=== PATIENT | female | born 1950 | race Caucasian/White ===

== ENCOUNTER → 2017-10-07 | Outpatient (CLI) | payer MEDICARE, MEDICAID ==
[~2017-10-07] MED LIST: AMIT-106; CALC3.7S6 NS; CYCL10TA29 PO; DEXL60CA6 PO; FLU20 PO; HYDR-3072 PO; HYDR-317 PO; HYDR-4309 PO; IBUP800T37 PO; LOR5 PO; MECL12.5 PO; NAPR500T75 PO; NITR-1 PO; OLME40TA28 PO; OMEP-153 PO; ONDA4TAB PO; ONDA4TAB9 PO; ONDA4TAB97 PO; PAN40 PO; PENT100C10 PO; TOLT4CAP13 PO; ZOLP-350 PO; [UNRECOGNIZED DRUG - CODE] SC
--- NOTE | 2017-10-07 10:43 | EKG ---
FAC[place] [facility] [place]IENT NAME: CECILIO BAEZ : [id number] MR: [id number] V: [id number] EXAM DATE: ORDERING PHYSICIAN: ELIANA MYERS TECHNOLOGIST: HAI Javier Reason : HYPERTENSION Blood Pressure : / mmHG Vent. Rate : 069 BPM Atrial Rate : 069 BPM P-R Int : 168 ms QRS Dur : 076 ms QT Int : 370 ms P-R-T Axes : 068 059 044 degrees QTc Int : 396 ms Sinus rhythm No acute appearing findings No previous ECGs available Confirmed by ERNIE CRISOSTOMO ([id number]) on 10/08/2017 3:37:43 PM Referred By: LOUIS Confirmed By:ERNIE CRISOSTOMO
== END ==
LOC: RESP 09:17
PROVIDERS: ATTEND Nurse Practitioner Family
DX: R00.2 Palpitations (principal); R42 Dizziness and giddiness; I10 Essential (primary) hypertension
CPT/HCPCS: 93005

== ENCOUNTER 2017-10-10 16:56 | Emergency (ER) | payer MEDICARE, MEDICAID ==
[~2017-10-10] VITALS: Ht 7.6 cm; Wt 66.4 kg
[2017-10-10] MEDS ORDERED: ALB18R INH (17:16)
--- NOTE | 2017-10-10 17:28 | EKG ---
FACILITY: [facility] - [place] PATIENT NAME: CECILIO BAEZ : [id number] MR: [id number] V: [id number] EXAM DATE: ORDERING PHYSICIAN: JAYJAY URBINA TECHNOLOGIST: Test Reason : Blood Pressure : / mmHG Vent. Rate : 065 BPM Atrial Rate : 065 BPM P-R Int : 164 ms QRS Dur : 066 ms QT Int : 404 ms P-R-T Axes : 063 035 037 degrees QTc Int : 420 ms Normal sinus rhythm Normal ECG No previous ECGs available Confirmed by DIEGO MURPHY ([id number]) on 10/11/2017 7:45:08 AM Referred By: Confirmed By:DIEGO MURPHY
[2017-10-10] MEDS ORDERED: cloNIDine HCL 0.1 MG TAB PO ONE (17:30)
[2017-10-10 17:37] LABS: PLATELET COUNT, AUTOMATED 151 K/uL (150-450)
[2017-10-10] MEDS ORDERED: OLME40TA28 PO (17:37)
[2017-10-10] MEDS ORDERED: MULT1CAP59 PO (17:38)
--- NOTE | 2017-10-10 17:39 | ER Report ---
History and Physical Time Seen By MD: 17:00 Hx. of Stated Complaint: PT REPORTS HIGH BLOOD PRESSURE READING AT HOME, HEADACHE AND SOME LIGHTHEADEDNESS HPI/ROS CHIEF COMPLAINT: high blood pressure HISTORY OF PRESENT ILLNESS: PT states that she has been having trouble with her blood pressure ever since they took her off her Benicar. PT states her insurance would not pay for benicar so they switched her to Losartin. Pts bp with the new medication was elevated. On friday pts pcp switched her to the generic of benicar but the bp is still elevated. no cp or sob. Pt c/o of headache and occasional light headedness. PT has been taking her bp at home mutliple times a day and this afternoon it was the highest so came to ed. Currently taking Olmesartian 40mg daily REVIEW OF SYSTEMS: Constitutional: No fever, no chills. Eyes: No discharge. ENT: No sore throat. Cardiovascular: No chest pain, no palpitations. Respiratory: No cough, no shortness of breath. Gastrointestinal: No abdominal pain, no vomiting. Genitourinary: No hematuria. Musculoskeletal: No back pain. Skin: No rashes. Neurological: + headache. Allergies: Coded Allergies: fluticasone (Verified Allergy, Intermediate, HIVES, Itching, 05/23/16) cefaclor (Verified Allergy, Unknown, GI DISTRESS, 05/23/16) Uncoded Allergies: STEROIDS (Allergy, Mild, HIVES, 06/25/09) wool (Allergy, Unknown, RASH, 02/22/14) Home Meds Active Scripts Dexlansoprazole (DEXILANT) 60 Mg Cap., 60 MG PO DAILY, #30 CAP Prov:JEROME WHEAT NP 05/23/16 Reported Medications Multivitamin (MULTIVITAMINS) 1 Each Capsule, 1 EACH PO, CAPSULE 10/10/17 Olmesartan Medoxomil (BENICAR) 40 Mg Tablet, 40 MG PO 10/10/17 Albuterol Sulfate (VENTOLIN HFA) 18 Gm Inh, 1-2 PUFF INH 3-4XD, INH 10/10/17 Discontinued Scripts Ondansetron (ONDANSETRON ODT) 4 Mg Tab.rapdis, 4 MG PO Q6H, #10 TAB One tablet every 6 hours as needed for nausea and vomiting. 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 Eyes: Pupils equal and round no pallor or injection, EOMI ENT: no pharyngeal erythema or exudates, Mucous membranes are moist, Respiratory: There are no retractions, lungs are clear to auscultation. Cardiovascular: Regular rate and rhythm. pulses are equal and symmetrical Gastrointestinal: Abdomen is soft and non tender, no masses, bowel sounds normal, no guarding, no rigidity or rebound Neurological: Cranial nerves II-XII grossly intact, no sensory or motor loss Skin: Warm and dry, no rashes. Musculoskeletal: Neck is supple non tender, no vertebral tenderness Extremities are nontender, non swollen and have full range of motion. DIFFERENTIAL DIAGNOSIS: After history and physical exam differential diagnosis was considered for elecrolyte abnl, medication resistance, acs Medical Decision Making Data Points Result Diagram: 10/10/17 1723 10/10/17 1723 Laboratory Hematology Test 10/10/17 17:23 Red Blood Count 4.06 M/uL (4.17-5.56) Mean Corpuscular Volume 98.3 fL (80.0-96.0) Mean Corpuscular Hemoglobin 34.5 pg (26.0-33.0) Mean Corpuscular Hemoglobin Concent 35.1 g/dL (32.0-36.0) Red Cell Distribution Width 13.0 % (11.5-14.5) Mean Platelet Volume 9.9 fL (7.2-11.1) Neutrophils (%) (Auto) 42.7 % (39.4-72.5) Lymphocytes (%) (Auto) 49.8 % (17.6-49.6) Monocytes (%) (Auto) 6.3 % (4.1-12.4) Eosinophils (%) (Auto) 0.8 % (0.4-6.7) Basophils (%) (Auto) 0.4 % (0.3-1.4) Nucleated RBC Relative Count (auto) 0.0 /100WBC Neutrophils # (Auto) 2.3 K/uL (2.0-7.4) Lymphocytes # (Auto) 2.7 K/uL (1.3-3.6) Monocytes # (Auto) 0.3 K/uL (0.3-1.0) Eosinophils # (Auto) 0.0 K/uL (0.0-0.5) Basophils # (Auto) 0.0 K/uL (0.0-0.1) Nucleated RBC Absolute Count (auto) 0.00 K/uL Sodium Level 138 mmol/L (137-145) Potassium Level 3.1 mmol/L (3.5-5.0) Chloride Level 103 mmol/L (98-107) Carbon Dioxide Level 26 mmol/L (22-31) Blood Urea Nitrogen 10 mg/dl (7-18) Creatinine 1.00 mg/dl (0.52-1.04) Glomerular Filtration Rate Calc 55.6 Random Glucose 84 mg/dl (75-110) Calcium Level 9.1 mg/dl (8.4-10.2) Troponin I < 0.012 ng/ml Chemistry Test 10/10/17 17:23 White Blood Count 5.3 k/uL (4.5-11.0) Red Blood Count 4.06 M/uL (4.17-5.56) Hemoglobin 14.0 g/dL (12.0-16.0) Hematocrit 39.9 % (34.0-47.0) Mean Corpuscular Volume 98.3 fL (80.0-96.0) Mean Corpuscular Hemoglobin 34.5 pg (26.0-33.0) Mean Corpuscular Hemoglobin Concent 35.1 g/dL (32.0-36.0) Red Cell Distribution Width 13.0 % (11.5-14.5) Platelet Count 151 K/uL (150-450) Mean Platelet Volume 9.9 fL (7.2-11.1) Neutrophils (%) (Auto) 42.7 % (39.4-72.5) Lymphocytes (%) (Auto) 49.8 % (17.6-49.6) Monocytes (%) (Auto) 6.3 % (4.1-12.4) Eosinophils (%) (Auto) 0.8 % (0.4-6.7) Basophils (%) (Auto) 0.4 % (0.3-1.4) Nucleated RBC Relative Count (auto) 0.0 /100WBC Neutrophils # (Auto) 2.3 K/uL (2.0-7.4) Lymphocytes # (Auto) 2.7 K/uL (1.3-3.6) Monocytes # (Auto) 0.3 K/uL (0.3-1.0) Eosinophils # (Auto) 0.0 K/uL (0.0-0.5) Basophils # (Auto) 0.0 K/uL (0.0-0.1) Nucleated RBC Absolute Count (auto) 0.00 K/uL Glomerular Filtration Rate Calc 55.6 Calcium Level 9.1 mg/dl (8.4-10.2) Troponin I < 0.012 ng/ml EKG/Imaging EKG Interpretation nsr @ 65 with no acute changes noted ED Course/Re-evaluation Clinical Indication for ER IV: IV Access ED Course 10/10/2017 5:46:45 pm Pts potassium slightly low will replace. Remainder of labs are stable. Will add to her current blood pressure regimen however discussed with pt that she can have her family doctor write a letter to her insurance stating she has failed multiple substitutions for benicar and then her insurance may pay for brand specific. Decision to Disposition Date: Oct 10, 2017 Decision to Disposition Time: 18:15 Depart Departure Latest Vital Signs Vital Signs Date Time Temp Pulse Resp B/P (MAP) Pulse Ox O2 Delivery O2 Flow Rate FiO2 10/10/17 17:07 98.1 74 20 201/93 94 Room Air Impression: Primary Impression: Hypertension Additional Impression: Hypokalemia Condition: Improved Disposition: HOME OR SELF-CARE Referrals: ELIANA MYERS (PCP) 2 Days New Scripts Amlodipine Besylate (NORVASC) 5 Mg Tablet 1 TAB PO QDAY, #14 TAB Prov: JAYJAY URBINA DO 2/2/18 Departure Forms: ER Transition Record, Medications Reconciliation, Patient Portal Information Patient Instructions: Hypertension (ED) Additional Instructions: Call your family doctor on Friday to make an appointment for blood pressure check and to discuss your blood pressure medications. You can ask your family doctor to write your insurance company stating you are failing the generic medication and need brand specific or your family doctor may choose to add a new medication or change your medication completely. We are adding Norvasc once a day to your current medications. This is a blood pressure medication. Continue to take your blood pressure and write it down for your family doctor so they can see how you are doing on the norvasc with your other medications. If your symptoms worsen prior to seeing your doctor then please return to emergency room. Problem Qualifiers Primary Impression: Hypertension Hypertension type: essential hypertension Qualified Codes: I10 - Essential ( primary) hypertension JAYJAY URBINA DO Oct 10, 2017 17:39
[2017-10-10] MEDS ORDERED: POTASSIUM CHL 20 MEQ TABCR PO ONE (17:50)
[2017-10-10] MEDS ORDERED: amLODIPine BESYL(*) 5 MG TAB PO ONE (18:15)
[2017-10-10] MEDS ORDERED: AMLO-101 PO (18:18)
[2017-10-10 18:30] VITALS: BP 142/97
== END 2017-10-10 18:42 | disposition home or self-care (01) ==
LOC: ER 17:04
DX: I10 Essential (primary) hypertension (principal); E87.6 Hypokalemia
CPT/HCPCS: 84484; 85025; 93005; 99284; A9270; 82310; 82374; 82435; 82565; 82947; 84132; 84295; 84520

== ENCOUNTER → 2017-10-31 | Outpatient (CLI) | payer MEDICARE, MEDICAID ==
[~2017-10-31] MED LIST changes: +ALB18R INH; +AMLO-101 PO; +MULT1CAP59 PO
--- NOTE | 2017-11-03 08:59 | RADIOLOGY IMAGING REPORT ---
FACILITY: [facility] PATIENT NAME: CECILIO BAEZ : [id number] MR: [id number] V: [id number] EXAM DATE: [id number] ORDERING PHYSICIAN: ELIANA MYERS TECHNOLOGIST: Idania Falcon PROCEDURE:BILATERAL DIGITAL SCREENING MAMMOGRAM WITH CAD ASSISTED INTERPRETATION & 3D TOMOSYNTHESIS COMPARISON:Prior mammograms 03/26/16, 12/11/11. INDICATIONS:screening FINDINGS: A small amount of fibroglandular tissue is seen throughout the breasts. The parenchymal pattern has remained stable allowing for difference in mammographic technique & patient positioning. There is no evidence of malignant appearing mass, malignant appearing calcifications or other secondary sign of malignancy in either breast. DIAGNOSTIC CATEGORY 1--NEGATIVE. RECOMMENDATIONS: ROUTINE MAMMOGRAM AND CLINICAL EVALUATION. IMPRESSION: BIRADS 1: Negative No significant abnormality is seen Dictated by: Diamante Silver M.D. on 10/31/2017 at 15:16 Transcribed by: KIM on 10/31/2017 at 16:03 Approved by: Diamante Silver M.D. on 11/03/2017 at 8:58 [facility]
== END ==
LOC: MAMO 10-21 01:03
PROVIDERS: ATTEND Nurse Practitioner Family
DX: Z12.31 Encounter for screening mammogram for malignant neoplasm of breast (principal)
CPT/HCPCS: 77063; 77067

== ENCOUNTER → 2017-11-03 | Outpatient (CLI) | payer MEDICARE, MEDICAID ==
[~2017-11-03] MED LIST changes: +ATROPINE SUL 1 MG/ML VIAL IVP PRN; +DOBUTamine/DEXT 250 MG/250 ML 250 ML IVPB ONE; +METOPROLOL TART 5 MG/5 ML VIAL IVP PRN; +NS 0.9% 20 ML SDV IVP PRN
--- NOTE | 2017-11-04 09:18 | RADIOLOGY IMAGING REPORT ---
FACILITY: [facility] - [place] PATIENT NAME: CECILIO BAEZ : [id number] MR: [id number] V: [id number] EXAM DATE: [id number] ORDERING PHYSICIAN: ELIANA MYERS TECHNOLOGIST: Miguel Salazar PROCEDURE: STRESS ECHOCARDIOGRAPHY DOBUTAMINE COMPARISON: None. INDICATIONS: HYPERTENSION/HX QUESTIONABLE HEART DISEASE FINDINGS: After informed consent, the patient was exercised using Dobutamine echocardiographic protocol. She was started 10ug/kg/min & increased by 10ug/kg/min to a maximum of 40ug/kg/min. Patient had no complaints of any chest pains or chest pressures or any shortness of breath. The test was stopped as she reached 91% of the predicted maximum heart rate. There was no ST segment change of ischemia. There was an occasional premature ventricular contraction. Her baseline EKG showed normal sinus rhythm. ECHOCARDIOGRAPHIC PORTION OF THE STRESS TEST: At rest the patient had normal ejection fraction of 58% with a Grade 1/4 decrease in diastolic function. There was a trace of mitral & tricuspid insufficiency with normal right ventricular systolic pressures of 33ml Hg. Mild amount of pulmonic insufficiency & a moderate amount of aortic insufficiency present. No stenosis of any of the valves was noted. With exercise the patient had normal hyperdynamic response to exercise with no left ventricular segmental wall motion abnormalities. CONCLUSION: 1. Normal stress echocardiograph with normal LV function systolically at rest with hyperdynamic response to exercise & low probability of ischemia. 2. A trace of mitral & tricuspid insufficiency with normal right ventricular pressures. 3. A mild amount of pulmonic insufficiency & a moderate amount of aortic insufficiency. No stenosis was noted. 4. There is a Grade 1/4 decrease in diastolic function. 5. No left ventricular thickening was noted. Dictated by: Ana María Yeboah M.D. on 11/03/2017 at 10:11 Transcribed by: ANITA on 11/03/2017 at 14:13 Approved by: Ana María Yeboah M.D. on 11/04/2017 at 9:16 [facility]
--- NOTE | 2017-11-05 08:28 | RT STRESS TEST REPORT ---
FACILITY: [facility] PATIENT NAME: CECILIO BAEZ : [id number] MR: [id number] V: [id number] EXAM DATE: ORDERING PHYSICIAN: ELIANA MYERS TECHNOLOGIST: Amparo Acquisition Time: 2017-11-03 07:07:57 Total Exercise Time: 00:09:53 Test Indications: htn Medications: Protocol: DOBUTAMINE Max HR: 142 BPM 91% of Pred: 155 BPM Max BP: 218/097 mmHG Max Work Load: 1.0 METS see echo report Confirmed by ANIVAL MITCHELL ([id number]) on 11/05/2017 8:28:02 AM Referred By: Overread By: ANIVAL MITCHELL
== END ==
LOC: RESP 01:13
PROVIDERS: ATTEND Nurse Practitioner Family
DX: R00.2 Palpitations (principal); I10 Essential (primary) hypertension; R53.81 Other malaise; R42 Dizziness and giddiness; R07.9 Chest pain, unspecified; I34.0 Nonrheumatic mitral (valve) insufficiency; I36.1 Nonrheumatic tricuspid (valve) insufficiency; I37.1 Nonrheumatic pulmonary valve insufficiency; I35.1 Nonrheumatic aortic (valve) insufficiency
CPT/HCPCS: 93017; 93325; 93350

== ENCOUNTER → 2018-01-01 | Outpatient (CLI) | payer MEDICARE, MEDICAID ==
[~2018-01-01] MED LIST changes: -ATROPINE SUL 1 MG/ML VIAL IVP PRN; -DOBUTamine/DEXT 250 MG/250 ML 250 ML IVPB ONE; -METOPROLOL TART 5 MG/5 ML VIAL IVP PRN; -NS 0.9% 20 ML SDV IVP PRN
--- NOTE | 2018-01-01 10:52 | RADIOLOGY IMAGING REPORT ---
[place] [facility] [place] NAME: Es Cerda : 1950 MR: [id number] V: [id number] EXAM DATE: [id number] ORDERING PHYSICIAN: ALLEN HSIEH TECHNOLOGIST: Location: [facility] Patient: Es Cerda : 1950 Visit/Account:[id number] Date of Sevice: 01/01/2018 DEXA Scan Clinical history: Screening. Comparison: 03/03/2009. LUMBAR SPINE: The bone mineral density (BMD) measured from L1-L4 correlates with a Z-score of 0.2 and a T-score of -1.5 which is osteopenic as defined by the World Health Organization. The liz esponding risk of fracture in the lumbar spine is moderately increased compared with a young adult re ference population. This value has decreased by two % since the prior study. More than 5% change is considered significant. HIP: Bone mineral density (BMD) measured in the Left Total Hip region correlates with a Z-score of -0.9 an d a T-score of -2.2. The T-score of the femoral neck is -2.2. The lower of the two T-scores is osteopenic as defined by the World Health Organization. Th e corresponding risk of fracture in the hip is moderately increased compared with a young adult refer ence population. This value has decreased by 13.2 % since the prior study. More than 5% change is c onsidered significant. Bone mineral density (BMD) measured in the Left Femoral Neck region measures 0.733 g/cm?. IMPRESSION: 1. Lumbar spine: Osteopenic. There has been no significant change in the bone mineral density sinc e the previous exam. 2. Left Total Hip: Osteopenic. There has been significant decrease in the bone mineral density sinc e the previous exam. The next DEXA scan of this patient should include the following sites: L1-L4 and Left hip. FRAX? WHO Fracture Risk Assessment Tool link: <http://www.shef.ac.uk/FRAX/tool.jsp?locationValue=9> PLEASE NOTE: 1) The World Health Organization defines low BMD as follows: T-score Normal > -1 Osteopenia < -1 and > -2.5 Osteoporosis < -2.5 without fractures Established osteoporosis < -2.5 with fractures 2) In general, you may wish to consider: Diagnosis Treatment Follow-up DEXA Normal BMD Prevention 2-3 years Osteopenia Prevention/therapy 1-2 years Osteoporosis Therapy Yearly 3) Fracture risk estimated from the T-score is more accurate for vertebral fractures (often spontane ous) than for hip fractures. Report Dictated By: Alvni Carlos MD at 01/01/2018 10:45 AM Report E-Signed By: Alvin Carlos MD at 01/01/2018 10:47 AM WSN:[email or web address]
== END ==
LOC: RAD 09:53
PROVIDERS: ATTEND Nurse Practitioner Family
DX: Z13.820 Encounter for screening for osteoporosis (principal); M85.89 Other specified disorders of bone density and structure, multiple sites
CPT/HCPCS: 77080

== ENCOUNTER → 2018-03-17 | Outpatient (CLI) | payer MEDICARE, MEDICAID | LOC: LAB 13:41 | PROVIDERS: ATTEND Nurse Practitioner Family | DX: R19.7 Diarrhea, unspecified (principal); I10 Essential (primary) hypertension; R05 Cough; K52.9 Noninfective gastroenteritis and colitis, unspecified; N30.10 Interstitial cystitis (chronic) without hematuria; M54.5 Low back pain; K21.9 Gastro-esophageal reflux disease without esophagitis; K31.84 Gastroparesis; E04.9 Nontoxic goiter, unspecified; M85.80 Other specified disorders of bone density and structure, unspecified site; D51.0 Vitamin B12 deficiency anemia due to intrinsic factor deficiency; E78.00 Pure hypercholesterolemia, unspecified; E63.9 Nutritional deficiency, unspecified; E55.9 Vitamin D deficiency, unspecified | CPT/HCPCS: 36415; 82040; 82247; 82306; 82310; 82374; 82435; 82465; 82565; 82607; 82728; 82947; 83718; 84075; 84132; 84155; 84295; 84443; 84450; 84460; 84478; 84520; 85027 ==

== ENCOUNTER → 2018-04-13 | Outpatient (CLI) | payer MEDICARE, MEDICAID ==
--- NOTE | 2018-04-13 15:03 | RADIOLOGY IMAGING REPORT ---
FACILITY: [facility] - [place] PATIENT NAME: Es Cerda : 1950 MR: [id number] V: [id number] EXAM DATE: ORDERING PHYSICIAN: ALLEN HSIEH TECHNOLOGIST: Location: [facility] Patient: Es Cerda : 1950 Visit/Account:[id number] Date of Sevice: 04/13/2018 Exam type: RIBS LEFT History: Pain while pulling the Comparison: April 12, 2008. Findings: There is a subtle irregularity along the anterior aspect the left 10th rib which may represent a smal l nondisplaced fracture. No evidence of pulmonary consolidation pleural effusion or pneumothorax. T he cardiac silhouette is normal in size. There are surgical clips the right upper quadrant of abdome n. IMPRESSION: 1. There is a subtle irregularity along the anterior aspect of the left 10th rib which may represent a small nondisplaced fracture Report Dictated By: Diamante Silver MD at 04/13/2018 2:57 PM Report E-Signed By: Diamante Silver MD at 04/13/2018 3:00 PM WSN:[email or web address]
== END ==
LOC: RAD 11:34
PROVIDERS: ATTEND Nurse Practitioner Family
DX: S30.0XXA Contusion of lower back and pelvis, initial encounter (principal); R07.81 Pleurodynia
CPT/HCPCS: 71100

== ENCOUNTER → 2018-06-24 | Outpatient (CLI) | payer MEDICARE, MEDICAID ==
[~2018-06-24] MED LIST changes: -HYDR-4309 PO; +HYDR-653 PO
--- NOTE | 2018-06-24 12:07 | RADIOLOGY IMAGING REPORT ---
FACILITY: [facility] - [place] PATIENT NAME: Es Cerda : 1950 MR: [id number] V: [id number] EXAM DATE: ORDERING PHYSICIAN: KSENIA [place] TECHNOLOGIST: Location: [facility] Patient: Es Cerda : 1950 Visit/Account:[id number] Date of Sevice: 06/24/2018 Exam type: CHEST PA AND LAT History: Iritis Comparison: February 17, 2015. Findings: The lungs are free of acute effusions, infiltrates or edema. Cardiac silhouette is normal in size. The trachea is in midline. Surgical clips are present right upper quadrant of abdomen. IMPRESSION: 1. No acute cardiac pulmonary process seen Report Dictated By: Diamante Silver MD at 06/24/2018 11:56 AM Report E-Signed By: Diamante Silver MD at 06/24/2018 12:02 PM WSN:[email or web address]
== END ==
LOC: RAD 10:17
PROVIDERS: ATTEND Technician/Technologist Ophthalmic
DX: H20.023 Recurrent acute iridocyclitis, bilateral (principal)
CPT/HCPCS: 71046; 86580

== ENCOUNTER → 2018-08-13 | Outpatient (CLI) | payer MEDICARE, MEDICAID | LOC: LAB 09:54 | PROVIDERS: ATTEND Nurse Practitioner Family | DX: R53.81 Other malaise (principal); E87.8 Other disorders of electrolyte and fluid balance, not elsewhere classified; E53.8 Deficiency of other specified B group vitamins | CPT/HCPCS: 36415; 82040; 82247; 82310; 82374; 82435; 82565; 82607; 82947; 84075; 84132; 84155; 84295; 84450; 84460; 84520; 85027 ==

== ENCOUNTER → 2018-12-24 | Outpatient (CLI) | payer MEDICARE, MEDICAID ==
[2018-12-24 10:00] LABS: PLATELET COUNT, AUTOMATED 162 K/uL (150-450)
== END ==
LOC: LAB 09:40
PROVIDERS: ATTEND Nurse Practitioner Family
DX: R53.81 Other malaise (principal); E87.8 Other disorders of electrolyte and fluid balance, not elsewhere classified; E78.00 Pure hypercholesterolemia, unspecified; E53.8 Deficiency of other specified B group vitamins; E55.9 Vitamin D deficiency, unspecified
CPT/HCPCS: 36415; 82040; 82247; 82306; 82310; 82374; 82435; 82465; 82565; 82607; 82947; 83718; 84075; 84132; 84155; 84295; 84450; 84460; 84478; 84520; 85025

== ENCOUNTER → 2019-01-26 | Outpatient (CLI) | payer MEDICARE, MEDICAID ==
--- NOTE | 2019-01-27 14:37 | RADIOLOGY IMAGING REPORT ---
FACILITY: [facility] [place] PATIENT NAME: CECILIO BAEZ : [id number] MR: [id number] V: [id number] EXAM DATE: [id number] ORDERING PHYSICIAN: ELIANA MYERS TECHNOLOGIST: Idania Falcon PROCEDURE: BILATERAL DIGITAL SCREENING MAMMOGRAM WITH CAD ASSISTED INTERPRETATION & 3D TOMOSYNTHESIS REASON FOR STUDY: Screening. FAMILY HISTORY OF BREAST CANCER: Sister. BREAST PROCEDURES/TREATMENTS: None. COMPARISON: Prior mammograms 10/31/17, 03/26/16. VIEWS OBTAINED: 2D & 3D full field CC & MLO. BREAST DENSITY: There are scattered areas of fibroglandular density throughout the breasts. MAMMOGRAM FINDINGS: The parenchymal pattern has remained stable allowing for difference in mammographic technique & patient positioning. IMPRESSION: BIRADS 1: Negative. DIAGNOSTIC CATEGORY 1--NEGATIVE. RECOMMENDATIONS: ROUTINE MAMMOGRAM AND CLINICAL EVALUATION. Dictated by: Diamante Silver M.D. on 01/26/2019 at 17:09 Transcribed by: KIM on 01/27/2019 at 10:01 Approved by: Diamante Silver M.D. on 01/27/2019 at 14:36 [facility]
== END ==
LOC: MAMO 01-21 14:26
PROVIDERS: ATTEND Nurse Practitioner Family
DX: Z12.31 Encounter for screening mammogram for malignant neoplasm of breast (principal)
CPT/HCPCS: 77063; 77067

== ENCOUNTER → 2019-03-08 | Outpatient (CLI) | payer MEDICARE, MEDICAID ==
[~2019-03-08] MED LIST changes: +DIA5 PO; +MECL25TA27 PO
--- NOTE | 2019-03-10 21:13 | RT HOLTER TEST ---
FACILITY: [facility] - [place] PATIENT NAME: CECILIO BAEZ : [id number] MR: [id number]: [id number] EXAM DATE: ORDERING PHYSICIAN: ELIANA MYERS TECHNOLOGIST: ZIA Huff-up date: 2019-03-08 14:00:00 Duration: 47:59:00 Test Indications: dizzy Medications: [id number] QRS complexes 11 Ventricular ectopics which represent <1 % of total QRS comp. 33 Supraventricular ectopics which represent <1 % of total QRS comp. * Paced QRS complexes which represent % of total QRS comp. VENTRICULAR ECTOPY 11 Isolated 0 Bigeminal Cycles 0 Couplets 0 Runs 0 Beats in Runs * Beats LONGEST at * BPM at :: -- * Beats FASTEST at * BPM at :: -- SUPRAVENTRICULAR ECTOPY 22 Isolated 4 Couplets 1 Runs 3 Beats in Runs 3 Beats LONGEST at 112 BPM at 04:36:54 2019-03-10 3 Beats FASTEST at 112 BPM at 04:36:54 2019-03-10 HEART RATES 53 MIN at 02:49:40 2019-03-09 79 AVG 141 MAX at 11:40:54 2019-03-09 LONGEST RR 1.312 secs at 06:24:13 2019-03-10 S-T LEVELS Channel 1 -12.800 mm MIN at 14:00:00 2019-03-08 -12.800 mm MAX at 14:00:00 2019-03-08 Channel 2 -12.800 mm MIN at 14:00:00 2019-03-08 -12.800 mm MAX at 14:00:00 2019-03-08 Channel 3 -12.800 mm MIN at 14:00:00 2019-03-08 -12.800 mm MAX at 14:00:00 2019-03-08 The patient had 5 symptom reports. She was in a sinus rhythm during all the events with heart rates ranging from 84-124 beats per minute (bpm). She was predominantly in a sinus rhythm with rare supraventricular ectopy and ventricular ectopy Confirmed by JAZZ YODER ([id number]) on 03/10/2019 9:10:26 PM Referred By: Overread By: JAZZ YODER
== END ==
LOC: RESP 13:47
PROVIDERS: ATTEND Nurse Practitioner Family
DX: R00.2 Palpitations (principal)
CPT/HCPCS: 93225; 93226

== ENCOUNTER 2019-03-09 12:13 | Emergency (ER) | payer MEDICARE, MEDICAID ==
[~2019-03-09 12:13] MED LIST changes: -DIA5 PO; -MECL25TA27 PO
[2019-03-09] MEDS ORDERED: MECL25TA27 PO (12:34)
[2019-03-09] MEDS ORDERED: DIAZEPAM 50 MG/10 ML MDV IVP ONE (12:50)
--- NOTE | 2019-03-09 12:57 | EKG ---
FACILITY: [facility] - [place] PATIENT NAME: CECILIO BAEZ : [id number] MR: [id number] V: [id number] EXAM DATE: ORDERING PHYSICIAN: MEREDITH PICKETT TECHNOLOGIST: Test Reason : CP Blood Pressure : / mmHG Vent. Rate : 086 BPM Atrial Rate : 086 BPM P-R Int : 162 ms QRS Dur : 060 ms QT Int : 346 ms P-R-T Axes : 074 048 059 degrees QTc Int : 414 ms Sinus rhythm Possible left atrial enlargement Nonspecific ST findings inferior leads Borderline ECG Confirmed by ERNIE CRISOSTOMO ([id number]) on 03/09/2019 9:02:17 PM Referred By: Confirmed By:ERNIE CRISOSTOMO
[2019-03-09 12:58] LABS: PLATELET COUNT, AUTOMATED 187 K/uL (150-450)
--- NOTE | 2019-03-09 13:31 | RADIOLOGY IMAGING REPORT ---
FACILITY: [facility] [place] PATIENT NAME: Es Cerda : 1950 MR: [id number] V: [id number] EXAM DATE: ORDERING PHYSICIAN: MEREDITH PICKETT TECHNOLOGIST: Location: [facility] Patient: Es Cerda : 1950 Visit/Account:[id number] Date of Sevice: 03/09/2019 Exam type: CHEST SINGLE AP History: CHEST PAIN Comparison: June 24, 2018. Findings: The lungs are free of acute effusions, infiltrates or edema. The cardiac silhouette is normal in siz e. The trachea is in midline. Surgical clips are present right upper quadrant IMPRESSION: 1. No acute cardiopulmonary process is seen Report Dictated By: Diamatne Silver MD at 03/09/2019 1:24 PM Report E-Signed By: Diamante Silver MD at 03/09/2019 1:25 PM WSN:[email or web address]
--- NOTE | 2019-03-09 13:33 | RADIOLOGY IMAGING REPORT ---
FACILITY: [facility] PATIENT NAME: Es Cerda : 1950 MR: [id number] V: [id number] EXAM DATE: ORDERING PHYSICIAN: MEREDITH PICKETT TECHNOLOGIST: Location: [facility] Patient: Es Cerda : 1950 Visit/Account:[id number] Date of Sevice: 03/09/[address] scan without contrast COMPARISONS: None ADDITIONAL PERTINENT HISTORY: Stroke like symptoms TECHNIQUE: Multiple axial images were obtained from the skull base to the vertex without IV contrast . One of the following dose optimization techniques was utilized in the performance of this exam: Aut omated exposure control; adjustment of the mA and/or kV according to the patient's size; or use of an iterative reconstruction technique. Specific details can be referenced in the facility's radiology CT exam operational policy. FINDINGS: Midline shift: Negative Ventricles: Negative Brain parenchyma: Negative Extra-axial spaces: Negative Intracranial vasculature: Negative Osseous structures: Negative Paranasal sinuses and mastoid air cells: Negative Surrounding soft tissues and orbits: Negative IMPRESSION: Normal head CT scan without contrast. Report Dictated By: Tunde Jean MD at 03/09/2019 1:25 PM Report E-Signed By: Tunde Jean MD at 03/09/2019 1:27 PM WSN:[email or web address]
--- NOTE | 2019-03-09 14:17 | ER Report ---
History and Physical Time Seen By MD: 12:15 Hx. of Stated Complaint: DIZZINESS, CONFUSION HPI/ROS CHIEF COMPLAINT: Dizzy HISTORY OF PRESENT ILLNESS: 68-year-old female comes in for complaint of vertigo which has been going on for last 2-3 days. Patient was seen by her primary care plan Ian with a little bit of improvement still having pronounced vertiginous symptoms and position changes edition exacerbates her symptomatology patient denies any chest pain shortness of breath she has nausea without vomiting or she bends over and acute head changes will exacerbate her symptoms. Patient has no additional complaints at this time REVIEW OF SYSTEMS: Respiratory: No cough, no dyspnea. Cardiovascular: No chest pain, no palpitations. Gastrointestinal: No vomiting, no abdominal pain. Musculoskeletal: No back pain. Remainder of the 14 system rev: Yes Allergies: Coded Allergies: fluticasone (Verified Allergy, Intermediate, HIVES, Itching, 05/23/16) cefaclor (Verified Allergy, Unknown, GI DISTRESS, 05/23/16) Uncoded Allergies: STEROIDS (Allergy, Mild, HIVES, 06/25/09) wool (Allergy, Unknown, RASH, 02/22/14) Home Meds Active Scripts Dexlansoprazole (DEXILANT) 60 Mg Cap., 60 MG PO DAILY, #30 CAP Prov:JEROME WHEAT NP 05/23/16 Reported Medications Meclizine Hcl (MECLIZINE HCL) 25 Mg Tab.chew, 25 MG PO Q8H, TAB.CHEW 03/09/19 Olmesartan Medoxomil (BENICAR) 40 Mg Tablet, 40 MG PO 10/10/17 Discontinued Reported Medications Multivitamin (MULTIVITAMINS) 1 Each Capsule, 1 EACH PO, CAPSULE 10/10/17 Albuterol Sulfate (VENTOLIN HFA) 18 Gm Inh, 1-2 PUFF INH 3-4XD, INH 10/10/17 Discontinued Scripts Amlodipine Besylate (NORVASC) 5 Mg Tablet, 1 TAB PO QDAY, #14 TAB Prov:JAYJAY URBINA DO 10/10/17 Reviewed Nurses Notes: Yes Old Medical Records Reviewed: Yes Hx Smoking: Yes Smoking Status: Former Smoker Hx Substance Use Disorder: No Hx Alcohol Use: No Constitutional Vital Sign - Last 24 Hours 03/09/19 03/09/19 03/09/19 03/09/19 12:29 12:30 13:30 14:00 Temp 98.1 Pulse 80 84 82 74 Resp 16 15 13 11 B/P (MAP) 150/84 135/83 (100) 118/76 (90) Pulse Ox 94 94 93 95 O2 Delivery Room Air Physical Exam General Appearance: The patient is alert, has no immediate need for airway protection and no current signs of toxicity. [ ] Eyes: Pupils equal and round no injection. Respiratory: Chest is non tender, lungs are clear to auscultation. Cardiac: regular rate and rhythm [ ] Gastrointestinal: Abdomen is soft and non tender, no masses, bowel sounds normal. Musculoskeletal: Neck: Neck is supple and non tender. Extremities have full range of motion and are non tender. Skin: No rashes or lesions. Neurologic examination GCS of 15 patient is alert and oriented 4 any movement of her head reproduces the symptoms of vertiginous type complaint with no nystagmus DIFFERENTIAL DIAGNOSIS: After history and physical exam differential diagnosis was considered for vertigo cardiac induced vertiginous symptoms Medical Decision Making Data Points Result Diagram: 03/09/19 1248 03/09/19 1239 Laboratory Hematology Test 03/09/19 12:39 03/09/19 12:48 Sodium Level 140 mmol/L (137-145) Potassium Level 4.3 mmol/L (3.5-5.0) Chloride Level 107 mmol/L (98-107) Carbon Dioxide Level 26 mmol/L (22-31) Blood Urea Nitrogen 17 mg/dl (7-18) Creatinine 1.20 mg/dl (0.52-1.04) Glomerular Filtration Rate Calc 44.8 Random Glucose 92 mg/dl (75-110) Calcium Level 9.3 mg/dl (8.4-10.2) Total Bilirubin 0.9 mg/dl (0.2-1.3) Aspartate Amino Transf (AST/SGOT) 29 U/L (0-35) Alanine Aminotransferase (ALT/SGPT) 31 U/L (0-56) Alkaline Phosphatase 88 U/L (0-126) Troponin I < 0.012 ng/ml Total Protein 7.1 g/dl (6.3-8.2) Albumin 4.1 g/dl (3.5-5.0) Red Blood Count 4.26 M/uL (4.17-5.56) Mean Corpuscular Volume 101.7 fL (80.0-96.0) Mean Corpuscular Hemoglobin 34.2 pg (26.0-33.0) Mean Corpuscular Hemoglobin Concent 33.7 g/dL (32.0-36.0) Red Cell Distribution Width 13.3 % (11.5-14.5) Mean Platelet Volume 10.0 fL (7.2-11.1) Neutrophils (%) (Auto) 56.2 % (39.4-72.5) Lymphocytes (%) (Auto) 36.6 % (17.6-49.6) Monocytes (%) (Auto) 6.0 % (4.1-12.4) Eosinophils (%) (Auto) 0.5 % (0.4-6.7) Basophils (%) (Auto) 0.7 % (0.3-1.4) Nucleated RBC Relative Count (auto) 0.1 /100WBC Neutrophils # (Auto) 3.1 K/uL (2.0-7.4) Lymphocytes # (Auto) 2.0 K/uL (1.3-3.6) Monocytes # (Auto) 0.3 K/uL (0.3-1.0) Eosinophils # (Auto) 0.0 K/uL (0.0-0.5) Basophils # (Auto) 0.0 K/uL (0.0-0.1) Nucleated RBC Absolute Count (auto) 0.00 K/uL Chemistry Test 03/09/19 12:39 03/09/19 12:48 Glomerular Filtration Rate Calc 44.8 Calcium Level 9.3 mg/dl (8.4-10.2) Total Bilirubin 0.9 mg/dl (0.2-1.3) Aspartate Amino Transf (AST/SGOT) 29 U/L (0-35) Alanine Aminotransferase (ALT/SGPT) 31 U/L (0-56) Alkaline Phosphatase 88 U/L (0-126) Troponin I < 0.012 ng/ml Total Protein 7.1 g/dl (6.3-8.2) Albumin 4.1 g/dl (3.5-5.0) White Blood Count 5.6 k/uL (4.5-11.0) Red Blood Count 4.26 M/uL (4.17-5.56) Hemoglobin 14.6 g/dL (12.0-16.0) Hematocrit 43.3 % (34.0-47.0) Mean Corpuscular Volume 101.7 fL (80.0-96.0) Mean Corpuscular Hemoglobin 34.2 pg (26.0-33.0) Mean Corpuscular Hemoglobin Concent 33.7 g/dL (32.0-36.0) Red Cell Distribution Width 13.3 % (11.5-14.5) Platelet Count 187 K/uL (150-450) Mean Platelet Volume 10.0 fL (7.2-11.1) Neutrophils (%) (Auto) 56.2 % (39.4-72.5) Lymphocytes (%) (Auto) 36.6 % (17.6-49.6) Monocytes (%) (Auto) 6.0 % (4.1-12.4) Eosinophils (%) (Auto) 0.5 % (0.4-6.7) Basophils (%) (Auto) 0.7 % (0.3-1.4) Nucleated RBC Relative Count (auto) 0.1 /100WBC Neutrophils # (Auto) 3.1 K/uL (2.0-7.4) Lymphocytes # (Auto) 2.0 K/uL (1.3-3.6) Monocytes # (Auto) 0.3 K/uL (0.3-1.0) Eosinophils # (Auto) 0.0 K/uL (0.0-0.5) Basophils # (Auto) 0.0 K/uL (0.0-0.1) Nucleated RBC Absolute Count (auto) 0.00 K/uL ED Course/Re-evaluation ED Course ED course 68-year-old female here with vertiginous symptoms CT of the head negative chest x-ray EKG blood work all negative. Spinal well to the tender of IV Valium push symptoms have improved she is able amply without issue we'll start her on by mouth Valium for the next couple of days discontinue the meclizine that she said that had no effect and have her return or follow up with primary care as needed Decision to Disposition Date: Mar 09, 2019 Decision to Disposition Time: 15:21 Depart Departure Latest Vital Signs Vital Signs Date Time Temp Pulse Resp B/P (MAP) Pulse Ox O2 Delivery O2 Flow Rate FiO2 03/09/19 14:00 74 11 95 03/09/19 13:30 118/76 (90) 03/09/19 12:29 98.1 Room Air Impression: Primary Impression: Benign positional vertigo Condition: Improved Disposition: HOME OR SELF-CARE Referrals: [facility] (PCP) 5 Days New Scripts Diazepam (VALIUM) 5 Mg Tablet 5 MG PO 2-3XD for 7 Days, #15 TAB Prov: MEREDITH PICKETT MD 03/09/19 Patient Instructions: Benign Paroxysmal Positional Vertigo (DC) MEREDITH PICKETT MD Mar 09, 2019 14:17
[2019-03-09 15:00] VITALS: BP 128/83
[2019-03-09] MEDS ORDERED: DIA5 PO (15:24)
== END 2019-03-09 15:42 | disposition home or self-care (01) ==
LOC: ER 12:23
DX: R42 Dizziness and giddiness (principal)
CPT/HCPCS: 70450; 71045; 84484; 85025; 93005; 96374; 99284; J3360; 82040; 82247; 82310; 82374; 82435; 82565; 82947; 84075; 84132; 84155; 84295; 84450; 84460; 84520